=== PATIENT | male | born 1950 | race Caucasian/White ===

== ENCOUNTER 2023-01-11 19:28 | Day surgery (SDC) | payer MEDICARE ==
[~2023-01-11 19:28] MED LIST: EPINEPHrine 1 MG INJECTION 4 MG in NS (IVPB) 246 ML IV SCH; HEParin (CATH LAB) 2,000 ML IV ONE; HEParin 1000 UNIT/ML (10ML VIAL) FOR BOLUS ONE; LIDOCAINE 1% INJ 20 ML VIAL ONE; MIDAZOLAM 5 MG/5 ML (VERSED) VIAL ONE; NITRO DRIP 25000 MCG/D5W 0 ML IV ONE; NS IV 1000 ML 1,000 ML ONE; fentaNYL INJ 100 MCG/2 ML AMP ONE
[2023-01-11] MEDS ORDERED: CATHETER FLUSH 10 ML SYR IVP ONE (19:29)
[2023-01-11] MEDS ORDERED: DOPamine DRIP 250 ML IV ONE (19:29)
[2023-01-11] MEDS ORDERED: ATROPINE INJECTION 1 MG/10 ML SYR (ABBOTT) INJ ONE (19:29)
[2023-01-11] MEDS ORDERED: EPINEPHrine 0.1 MG/ML 10 ML (HOSPIRA) SYR IJ ONE (19:29)
[2023-01-11] MEDS ORDERED: EPINEPHrine 0.1 MG/ML 10 ML (HOSPIRA) SYR ONE (20:24)
--- NOTE | 2023-01-11 20:38 | Cardiology History & Physical ---
HPI-Cardiology Cardiology Consultation Date of Consultation 01/11/23 Date of Admission Time Seen by Provider: 20:32 Indication: Cardiac arrest HPI 72-year-old gentleman with no known past medical history. Has been having chest pain described it as heartburn to his and daughter for the past month. He was in the car with his daughter when he slumped over and became unresponsive, she drove him to [facility] emergency room. ACLS protocol was initiated. Patient was intubated. He was hypotensive and hypoxemic. EKG showed abnormality. I was contacted and I excepted him. History was obtained by visiting with [facility] emergency room personnel and his family. On arrival to our hospital patient was placed on the cardiac catheterization laboratory, he was in pulseless electrical activity. CODE LAURIE was called and we initiated chest compression. He was on epinephrine drip, he received multiple doses of epinephrine and atropine. We restored pulse with severe hypotension, continue with epinephrine drip and added dobutamine drip I proceeded with emergency cardiac catheterization. PMH-Cardiology Other PMHx Seasonal allergy Social History Patient Social History Marrital Status: Employed/Student: retired Family Hx Significant Family History: No Pertinent Family Hx ROS-Cardiology Review of Systems General: Other (Unable to provide review of system) Home Medications & Allergies Allergies: Coded Allergies: Unable to Assess (Verified Allergy, Unknown, 01/11/23) Take keiz-zpr-nlazrct allergy medication Exam-Cardiology Exam General Appearance: Other (Intubated and unresponsive) HEENT: Atraumatic Respiratory: Other (Bilateral rhonchi) Cardiovascular: Regular Rate Abdominal: Other (Absent bowel sounds) Extremities: Other (Mottled skin) Skin: Other (Mottled skin) Neuro: Other (Unresponsive) Results Procedures Procedures Lab results from [facility] were reviewed A/P-Cardiology Admission Diagnosis Acute myocardial infarction Cardiogenic shock Ventilator dependent respiratory failure Asystole Pulseless electrical activity Admission Status: Inpatient Order (span 2 midnights) Reason for Inpatient Admission: Acute myocardial infarction Assessment/Plan Acute myocardial infarction, multivessel disease. Cardiopulmonary arrest with CODE BLUE multiple times Pulseless electrical activity Hypotensive shock, cardiogenic shock Ventilator dependent respiratory failure Anoxic brain injury Hospital course: On arrival to the [facility] patient was in pulseless electrical activity. JERRY LAURIE was called, he was already on epinephrine drip. He has coded twice in [place] After restoring pulse with severe hypotension Cardiac catheterization was carried out showing severe multivessel disease Subtotal occlusion at the ostial/proximal LAD, unable to advance balloon or wire in the LAD, I was able to advance in the proximal diagonal artery that has 95% stenosis with balloon angioplasty Severe stenosis of the circumflex artery Severe stenosis of the right coronary artery Left ventriculogram was done and showing severely dilated left ventricle with diffuse hypokinesia, ejection fraction less than 5% I was preparing to proceed with balloon pump placement, sheath was exchanged Patient became asystolic. ACLS protocol was followed after calling CODE BLUE. I visited with the family and they requested to stop the code and call it off. Patient was pronounced Final diagnosis: Acute myocardial infarction Cardiogenic shock Ventilator dependent respiratory failure Acute myocardial infarction Anoxic brain injury SHAHID PARK MD Jan 11, 2023 20:38
--- NOTE | 2023-01-11 20:46 | Cardiac Cath Report ---
Cardiac Cath Report Physician (s)/Electronic Video Games Servicer (s) Physician SHAHID PARK MD Pre-Procedure Diagnosis Pre-Procedure Diagnosis: Acute myocardial infarction Post-Procedure Note Procedure Start Date: Jan 11, 2023 Name of Procedure: Left heart catheterization Emergency balloon angioplasty to the LAD Findings/Procedure Note 72-year-old gentleman seen in [facility] was in cardiac arrest outside the hospital, ACLS protocol was followed Patient was intubated He was hypotensive and hypoxemic Started on epinephrine drip Noted to have EKG changes Had another episode with hypotension, ET tube was changed, started on IV fluid Received 5000 units of heparin Transferred to [facility] On arrival to [place] patient was in pulseless electrical activity CODE BLUE was called, ACLS protocol was followed Pulse was restored with severe hypotension He was on epinephrine drip and dobutamine drip was added 6 Romanian sheath was placed in the right femoral artery, combination of right and left Yahir catheter was used to access the right and left coronary system, angiogram was done Pigtail catheter advanced to the left ventricular cavity and left ventriculogram was done 6 Romanian Yahir left guide was used and BMW wire was advanced in the LAD/alvaro gonal artery. I advanced a second wire whisper extra-support in the LAD The LAD was totally occluded, I was unable to advance the wire in the LAD, the ramus intermedius has 95% stenosis, I was able to advance the wire in the ramus and intermedius and balloon angioplasty was done to the ostial ramus intermedius/diagonal The wire in the LAD was not advanced to goal. I was concerned about perforation. Was unable to advance it beyond the proximal portion, multiple attempts were made I decided not to place a stent due to the extremely low blood pressure and the low cardiac output. I was planning to proceed with intra-aortic balloon pump and stabilizing the patient and then transferring him to a tertiary care center Patient had another episode of asystole CODE BLUE was called and ACLS protocols were followed I visited with the family and they requested to call the code off Patient was pronounced Anatomy Left main is free of obstructive disease LAD is totally occluded at the proximal portion Ramus intermedius has 99% ostial/proximal stenosis, successful balloon angioplasty to the ramus intermedius/diagonal artery with reduction to less than 10% stenosis Left circumflex artery has 95% mid stenosis with haziness in the proximal portion suggestive of thrombus Right coronary artery is dominant artery with 60% stenosis at the midportion Left ventriculogram was done with dilated left ventricle and severe diffuse left ventricular hypokinesia and ejection fraction less than 5% Conclusion Cardiogenic shock secondary to multivessel coronary artery disease and acute myocardial infarction Total occlusion of the ostial LAD, subtotal occlusion at the ostial/proximal ramus intermedius, severe stenosis at the mid circumflex artery and proximal/mid right coronary artery Balloon angioplasty to the ostial/proximal ramus intermedius/diagonal artery with reduction of the stenosis. Unsuccessful attempt to cross the ostial LAD lesion Severe cardiomyopathy with ejection fraction less than 5% Anesthesia Type: Conscious Sedation Estimated blood loss (mL): 20 Post-Procedure Diagnosis Post-operative diagnosis: Acute myocardial infarction Cardiogenic shock Pulseless electrical activity Asystole SHAHID PARK MD Jan 11, 2023 20:46
== END 2023-01-11 20:25 | disposition expired ==
LOC: CATH 19:28
PROVIDERS: ATTEND Internal Medicine Cardiovascular Disease
DX: I21.9 Acute myocardial infarction, unspecified (principal); R57.0 Cardiogenic shock; R00.8 Other abnormalities of heart beat; I46.9 Cardiac arrest, cause unspecified; M31.4 Aortic arch syndrome [Takayasu]; J96.90 Respiratory failure, unspecified, unspecified whether with hypoxia or hypercapnia; G93.1 Anoxic brain damage, not elsewhere classified; I25.10 Atherosclerotic heart disease of native coronary artery without angina pectoris
CPT/HCPCS: 93458; 94002; C1725; C1769 ×2; C1887; C1894; C9606